=== PATIENT | female | born 1955 | race Hispanic/Latino ===

== ENCOUNTER → 2021-02-22 | Day surgery (SDC) | payer MEDICARE ==
[~2021-02-22] MED LIST: Lidocaine 1% PF 5 ML VIAL ONE; Sodium Bicarbonate 2.5 MEQ/5 ML VIAL ONE
[2021-02-22 14:03] VITALS: BP 118/85; TEMP 98.7
== END ==
LOC: ULT 12:45
PROVIDERS: ATTEND Student in an Organized Health Care Education/Training Program
PROC: 0G9G3ZX Drainage of Left Thyroid Gland Lobe, Percutaneous Approach, Diagnostic (ICD-10-PCS; principal; 2021-02-22)
DX: E04.1 Nontoxic single thyroid nodule (principal); Z79.84 Long term (current) use of oral hypoglycemic drugs; Z79.899 Other long term (current) drug therapy
CPT/HCPCS: 60100; 76942; 88173; 88305